=== PATIENT | female | born 1935 | race Two or more races ===

== ENCOUNTER 2019-04-24 20:07 | Inpatient (IN) | payer MEDICARE, OTHER ==
[~2019-04-24] VITALS: Ht 154.9 cm; Wt 73.3 kg
--- NOTE | 2019-04-24 20:28 | NUR ---
[id number] FROM HOME C/O SOB X2 DAYS -CP, -COUGH. PT AAOX3, DENIES CP, DIZZINESS, N/V, WEAKNESS @ THIS TIME. AWAITING EVAL BY PADDY. PLACED ON RAMP SERVICE MAN, SR. WILL CONT TO MONITOR.
[2019-04-24 21:14] LABS: BASOPHILS # (AUTO) 0.1 /CMM (0.0-0.2); BASOPHILS % (AUTO) 1.2 % (0.0-2.0); EOSINOPHILS % (AUTO) 1.7 % (0.0-6.0); HEMATOCRIT 30 % (33-45); HEMOGLOBIN 9.6 g/dL (11.5-14.8); LYMPHOCYTES # (AUTO) 1.7 /CMM (0.8-4.8); LYMPHOCYTES % (AUTO) 26.3 % (20.0-44.0); MEAN CORPUSCULAR HGB CONC 32 g/dl (31.0-36.0); MEAN CORPUSCULAR VOLUME 85 fL (82-100); NEUTROPHILS # (AUTO) 3.5 /CMM (1.8-8.9); NEUTROPHILS % (AUTO) 54.8 % (43.0-81.0); PLATELET COUNT (AUTO) 188 /CMM (150-450); RED BLOOD CELL COUNT(AUTO) 3.56 MIL/uL (4.0-5.2); WHITE BLOOD COUNT (AUTO) 6.3 K/uL (4.3-11.0)
[2019-04-24] MEDS ORDERED: IOHEXOL-300 100 ML VIAL IV ONE (21:17)
[2019-04-24] MEDS ORDERED: IV NS 0.9% 250 ML IV ONE (21:18)
[2019-04-24] MEDS ORDERED: CT SWABBABLE VALVE TRANS SET 1 EA INFUS.SET MC ONE (21:18)
[2019-04-24 21:36] LABS: B-TYPE NATRIURETIC PEPTIDE 16215 PG/ML (0-125); CARBON DIOXIDE 19 mmol/L (21-32); CHLORIDE 106 mmol/L (98-107); CREATININE 2.9 mg/dL (0.6-1.3); GLUCOSE 294 mg/dL (74-106); POTASSIUM 4.3 mmol/L (3.5-5.1); SODIUM SERUM 136 mmol/L (136-145); UREA NITROGEN, BLOOD 44 mg/dL (7-18)
--- NOTE | 2019-04-24 21:48 | NUR ---
PT STABLE, DENIES CP, DIZZINESS, N/V, WEAKNESS @ THIS TIME. WILL CONT TO MONITOR.
[2019-04-24] MEDS ORDERED: FUROSEMIDE 40 MG/4 ML VIAL ONE (22:00)
[2019-04-24] MEDS ORDERED: FUROSEMIDE 20 MG/2 ML VIAL ONE (22:00)
[2019-04-24] MEDS ORDERED: FUROSEMIDE 40 MG/4 ML VIAL IV ONE (22:00)
[2019-04-24 22:10] LABS: EOSINOPHILS % (MANUAL) 1 % (0-4); LYMPHOCYTES % (MANUAL) 30 % (16-48); MONOCYTES % (MANUAL) 13 % (0-11.0); NEUTROPHILS % (MANUAL) 55 (42-76); REACTIVE LYMPHOCYTES 1 % (0-0)
--- NOTE | 2019-04-24 22:29 | NUR ---
REPORT GIVEN TO NIKOS XAVIER FOR SERGIO.
[2019-04-24] MEDS ORDERED: DEXTROSE 50%-WATER 50 ML DISP.SYRIN IV PRN (22:30)
[2019-04-24] MEDS ORDERED: MAGNESIUM HYDROXIDE 30 ML UDC PO PRN (22:30)
[2019-04-24] MEDS ORDERED: MAG HYDROX/AL HYDROX/SIMETH 30 ML UDC PO PRN (22:30)
[2019-04-24] MEDS ORDERED: ONDANSETRON HCL/PF 4 MG/2 ML VIAL IVP PRN (22:30)
[2019-04-24] MEDS ORDERED: MORPHINE SULFATE INJ 2 MG/ML DISP.SYRIN IV PRN (22:30)
[2019-04-24] MEDS ORDERED: HYDROCODONE/APAP 5/325MG 1 EACH TABLET PO PRN (22:30)
[2019-04-24] MEDS ORDERED: ACETAMINOPHEN 325 MG TABLET PO PRN (22:30)
[2019-04-24 23:00] VITALS: BP 139/59
--- NOTE | 2019-04-24 23:00 | NUR ---
RN MS TELE ADMISSION NOTES RECEIVED PATIENT VIA GURNEY FROM ER SAFELY TRANSFERRED TO BED, AWAKE ALERT AND ORIENTED X3, ABLE TO COMMUNICATE NEEDS, NOTED SOB ON EXERTION ON 4 L VIA NC, SP02 94%, HEAD OF BED ELEVATED FOR RELIEF, BODY ASSESSMENT DONE, NO OPEN WOUNDS PRESENT, PATIENT ALSO STATES " NO OPEN SKIN". SACRAL NOTED WITH INTACT SCAR TISSUE, NO REDNESS, ABDOMEN WITH SCATTERED DISCOLORATIONS PER PATIENT STATES " INSULIN INJECTIONS" AND ALSO SCATTERED INTACT ECCHYMOSIS TO RIGHT AND LEFT UPPER ARMS PATIENT STATES " FROM ASPIRIN". IV SITE TO LEFT AC #18G AND LEFT HAND #18 G INTACT AND PATENT,NO REDNESS, NO INFILTRATION, BELONGINGS LIST DONE,ORIENTED TO STAFF AND CALL LIGHT AND KEPT WITHIN REACH, SAFETY PRECAUTIONS IN PLACE, LOW BED AND LOCKED, BED ALARM IN PLACE, ATTEMPTED TO OBTAIN MED RECON HOME MEDS PATIENT HOWEVER IS UNABLE TO RECALL MEDICATION, TIME AND DOSING STATES EITHER "NEIGHBOR CAN HELP OR OUTSIDE PHARMACY HAS A LIST OF MEDS" TOILETING OFFERED, ABLE TO AMBULATE TO RESTROOM WITH CANE AND 2 PERSON ASSIST, C/O PAIN TO KNEE WHEN AMBULATING, NOTED COMFORTABLE WHEN IN BED. ALL NEEDS ATTENDED AT THIS TIME, WILL CONTINUE TO MONITOR AND ATTEND TO NEEDS AND FOLLOW MD ORDERED. Addendum: 04/25/19 at 0153 by MORENITA HERRING RN PLACED ON CARDIAC TELE MONITOR NOTED A.FIB 38-51. WILL CONTINUE TO MONITOR FOR ANY CHANGES
[2019-04-25] VITALS: BP 120/63
[2019-04-25 04:00] VITALS: BP 123/49
[2019-04-25 04:30] VITALS: BP 123/49
--- NOTE | 2019-04-25 05:30 | NUR ---
RN MS NOTES MADE HOSPITALIST AWARE PATIENT COMPLAINT OF FEELING OF UNABLE TO CATCH BREATH AT TIME PATIENT IS NOT IN DISTRESS VS 123/49,45,20,93% ON 4L WILL AWAIT FOR FURTHER RECOMMENDATION.
--- NOTE | 2019-04-25 06:20 | NUR ---
RN MS NOTES NEW ORDERS PER HOSPITALIST FOR PULMONARY VENTILATION STAT.
[2019-04-25] MEDS: INSULIN REGULAR, HUMAN 100 UNIT/ML 3 ML VIAL SQ PRN ×3 (06:26→17:41)
[2019-04-25 06:44] LABS: BASOPHILS # (AUTO) 0.1 /CMM (0.0-0.2); HEMATOCRIT 31 % (33-45); HEMOGLOBIN 9.9 g/dL (11.5-14.8); LYMPHOCYTES # (AUTO) 1.5 /CMM (0.8-4.8); LYMPHOCYTES % (AUTO) 24.4 % (20.0-44.0); MEAN CORPUSCULAR HGB CONC 32 g/dl (31.0-36.0); MEAN CORPUSCULAR VOLUME 84 fL (82-100); MONOCYTES % (AUTO) 17.5 % (2.0-12.0); NEUTROPHILS # (AUTO) 3.2 /CMM (1.8-8.9); NEUTROPHILS % (AUTO) 54.1 % (43.0-81.0); PLATELET COUNT (AUTO) 190 /CMM (150-450); RED BLOOD CELL COUNT(AUTO) 3.64 MIL/uL (4.0-5.2)
--- NOTE | 2019-04-25 06:54 | NUR ---
RN MS NOTES RECEIVED CALL FROM NUCLEAR MEDICINE/RADIOLOGY FOR PULMONARY VENTILATION STAT TEST WILL BE AROUND 830-9AM.
--- NOTE | 2019-04-25 06:56 | NUR ---
RN MS NOTES PATIENT CURRENTLY IN BED AWAKE ALERT AND ORIENTED X3, ABLE TO MAKE NEEDS KNOWN , NOTED SOB ON EXERTION OR WHEN WALKING TO COMMODE. WHEN AT REST PATIENT IS NOT IN DISTRESS BUT STATES " HARD TO CATCH BREATH", ON 02 4L VIA NC SP02 94%. IV SITE TO LEFT AC#18G AND LEFT HAND #18G INTACT AND PATENT, NO REDNESS, NO INFILTRATION PRESENT, ON CANNON PINION ADJUSTER A.FIB RANGING FROM 38-51, HOSPITALIST AWARE AWAITING CARDIO CONSULT PATIENT AWARE. ALL NEEDS ATTENDED AT THIS TIME ,AWAITING NM PULMONARY VENTILATION STAT, WILL CONTINUE TO MONITOR AND ENDORSE TO NEXT SHIFT, PATIENT REMAINS COMFORTABLE AT THIS TIME. URINE OUTPUT 600CC AND VOID X2 IN RESTROOM. NO FURTHER CHANGES NOTED SINCE ADMISSION. PATIENT SLEPT WELL
[2019-04-25 07:12] LABS: CHOLESTEROL 137 mg/dL (<200); HDL CHOLESTEROL 20 mg/dL (40-60); LDL 80 mg/dL (0-99); THYROID STIMULATING HORMONE 6.626 uIU/mL (0.358-3.74); TRIGLYCERIDES 264 mg/dL (30-150)
[2019-04-25 07:21] LABS: B-TYPE NATRIURETIC PEPTIDE 17052 PG/ML (0-125); CALCIUM, SERUM 8.1 mg/dL (8.5-10.1); CARBON DIOXIDE 17 mmol/L (21-32); CHLORIDE 107 mmol/L (98-107); CREATININE 2.9 mg/dL (0.6-1.3); GLUCOSE 165 mg/dL (74-106); MAGNESIUM 1.8 mg/dL (1.8-2.4); PHOSPHORUS 4.4 mg/dL (2.5-4.9); POTASSIUM 3.8 mmol/L (3.5-5.1); SODIUM SERUM 139 mmol/L (136-145); UREA NITROGEN, BLOOD 46 mg/dL (7-18)
--- NOTE | 2019-04-25 07:30 | NUR ---
TUB RIDER OPENING NOTES: RECEIVED PATIENT IN BED AWAKE AND STABLE. A/OX3. ESTONIAN SPEAKING, VERBALLY RESPONSIVE. ABLE TO MAKE NEEDS KNOWN. NO S/S OF SOB OR DISTRESS. NO COMPLAINS OF PAIN AT THIS TIME. HOB ELEVATED. SAFETY MEASURES INITIATED. BED IN LOW, LOCKED POSITION WITH SIDE RAILS UP X2. IV ACCESS ON LEFT AC #18G, AND LEFT HAND #18G CLEAN, PATENT, AND INTACT. WILL CONTINUE TO MONITOR ACCORDINGLY.
[2019-04-25 08:00] VITALS: BP 126/57
[2019-04-25] MEDS: BLOOD SUGAR DIAGNOSTIC 1 EACH STRIP IN SCH ×4 (08:23→22:01)
[2019-04-25] MEDS: ASPIRIN 81 MG TAB.CHEW PO SCH (08:45)
[2019-04-25] MEDS: FUROSEMIDE 40 MG/4 ML VIAL IV SCH ×2 (08:46→17:07)
[2019-04-25] MEDS: PANTOPRAZOLE 40 MG TABLET.DR PO SCH (08:46)
[2019-04-25] MEDS ORDERED: FUROSEMIDE 40 MG/4 ML VIAL IV SCH (09:00)
--- NOTE | 2019-04-25 11:27 | NUR ---
NM LUNG V/Q WAS COMPLETED. TECH:RB
[2019-04-25 16:00] VITALS: BP 128/70
--- NOTE | 2019-04-25 19:06 | NUR ---
PERFORMANCE IMPROVEMENT COORDINATOR NOTES PATIENT IN BED RESTING PATIENT WITH SOB WITH MINIMAL EXERTION. PATIENT ALERT, ORIENTED X3, AZERI SPEAKING. NO ACUTE CHANGES NOTED DURING SHIFT. ALL DUE MEDICATIONS ADMINISTERED. ALL NEEDS MET. WILL ENDORSE CARE TO PM SHIFT.
[2019-04-25 20:00] VITALS: BP 147/71
--- NOTE | 2019-04-25 21:05 | NUR ---
c/o pain at IV site,left anticubital,place another on lower left arm and DC'd the one that was painful,no problems
--- NOTE | 2019-04-25 22:01 | NUR ---
BS 86,gave two packs of sugar to desolve in mouth to raise blood sugar.Patient is not eating his food or anything else. Addendum: 04/26/19 at 0023 by TIMOTEO MARR RN wrong patient,disregard
[2019-04-25 23:25] LABS: APPEARANCE,URINE CLEAR (CLEAR); BILIRUBIN,URINE NEGATIVE (NEGATIVE); BLOOD, URINE TRACE Ery/uL (NEGATIVE); COLOR,URINE YELLOW (YELLOW); KETONES,URINE NEGATIVE (NEGATIVE); LEUKOCYTE ESTERASE ,URINE SMALL (NEGATIVE); NITRITE, URINE NEGATIVE (NEGATIVE); PH,URINE 5.5 (5.0-8.0); PROTEIN,URINE TRACE mg/dl (NEGATIVE); UGLUCOSE NEGATIVE (NEGATIVE); UROBILINOGEN,URINE 0.2 EU/dL (0.2)
[2019-04-25 23:36] LABS: BACTERIA,URINE None seen /HPF (None Seen); RBC,URINE 0-2 /HPF (0-2); SQUAMOUS EPITHELIAL CELL,UR Few /HPF (None Seen)
[2019-04-25 23:37] LABS: EOSINOPHIL,URINE None Seen
[2019-04-25 23:40] LABS: CREATININE, URINE 18.7 MG/DL (30.0-125.0)
[2019-04-25 23:41] LABS: URINE TOTAL PROTEIN 2.3 mg/dL (0-11.9)
[2019-04-26] VITALS: BP 150/72
[2019-04-26 04:00] VITALS: BP 150/67
[2019-04-26 06:27] LABS: ALANINE AMINOTRANSFERASE 27 U/L (12-78); ALBUMIN 2.8 g/dL (3.4-5.0); ALKALINE PHOSPHATASE 97 U/L (46-116); ASPARTATE AMINOTRANSFERASE 26 U/L (15-37); BASOPHILS % (AUTO) 0.7 % (0.0-2.0); BILIRUBIN,TOTAL 0.5 mg/dL (0.2-1.0); CARBON DIOXIDE 23 mmol/L (21-32); CHLORIDE 106 mmol/L (98-107); EOSINOPHILS % (AUTO) 1.9 % (0.0-6.0); GLUCOSE 167 mg/dL (74-106); HEMATOCRIT 33 % (33-45); HEMOGLOBIN 10.4 g/dL (11.5-14.8); LYMPHOCYTES # (AUTO) 1.4 /CMM (0.8-4.8); LYMPHOCYTES % (AUTO) 20.3 % (20.0-44.0); MAGNESIUM 1.6 mg/dL (1.8-2.4); MEAN CORPUSCULAR HGB CONC 32 g/dl (31.0-36.0); MEAN CORPUSCULAR VOLUME 83 fL (82-100); MONOCYTES % (AUTO) 14.4 % (2.0-12.0); NEUTROPHILS # (AUTO) 4.2 /CMM (1.8-8.9); NEUTROPHILS % (AUTO) 62.7 % (43.0-81.0); PLATELET COUNT (AUTO) 194 /CMM (150-450); POTASSIUM 3.7 mmol/L (3.5-5.1); RED BLOOD CELL COUNT(AUTO) 3.91 MIL/uL (4.0-5.2); SODIUM SERUM 141 mmol/L (136-145); TOTAL PROTEIN, SERUM 6.7 g/dL (6.4-8.2); UREA NITROGEN, BLOOD 43 mg/dL (7-18); WHITE BLOOD COUNT (AUTO) 6.7 K/uL (4.3-11.0)
[2019-04-26 06:40] LABS: CHOLESTEROL 155 mg/dL (<200); CREATINE KINASE, TOTAL 53 U/L (26-192); HDL CHOLESTEROL 20 mg/dL (40-60); LDL 94 mg/dL (0-99); TRIGLYCERIDES 275 mg/dL (30-150)
--- NOTE | 2019-04-26 06:45 | NUR ---
Patient started to show signs of difficulty breathing,check o2 sat,98 %.Showed it to patient.O2 sat machine attach.
--- NOTE | 2019-04-26 07:58 | NUR ---
DISTILLERY WORKER OPENING NOTES RECEIVED PATIENT IN BED, ASLEEP. AROUSABLE TO VERBAL AND TACTILE STIMULI. ALERT AND ORIENTED X3 CYMRAES. ON TELE MONITORING SINUS WITH CONTROLLED A-FIB WITH BBB WITH PVC RATE OF 69. HOB ELEVATED. NO SOB. DENIES ANY PAIN NOR DISCOMFORT. CALL LIGHT WITHIN REACH. BED ALARM ON.
--- NOTE | 2019-04-26 07:58 | NUR ---
SENIOR COMPENSATION ANALYST OPENING NOTES RECEIVED PATIENT IN BED, ASLEEP. AROUSABLE TO VERBAL AND TACTILE STIMULI. ALERT AND ORIENTED X3 SPANISH SPEAKING WITH DAUGHTER AT BEDSIDE. ON TELE MONITORING SINUS WITH CONTROLLED A-FIB WITH BBB WITH PVC RATE OF 69. HOB ELEVATED. NO SOB. DENIES ANY PAIN NOR DISCOMFORT. CALL LIGHT WITHIN REACH. BED ALARM ON.
[2019-04-26] MEDS: PANTOPRAZOLE 40 MG TABLET.DR PO SCH (08:31)
[2019-04-26] MEDS: ASPIRIN 81 MG TAB.CHEW PO SCH (08:32)
[2019-04-26] MEDS: BLOOD SUGAR DIAGNOSTIC 1 EACH STRIP IN SCH ×4 (08:32→21:44)
[2019-04-26] MEDS: FUROSEMIDE 40 MG/4 ML VIAL IV SCH ×2 (08:32→17:29)
[2019-04-26] MEDS: INSULIN REGULAR, HUMAN 100 UNIT/ML 3 ML VIAL SQ PRN ×4 (08:36→21:50)
[2019-04-26] MEDS ORDERED: BLOO-668 IN (10:07)
[2019-04-26] MEDS ORDERED: ROSU10TA29 PO (10:07)
[2019-04-26] MEDS ORDERED: METO-358 PO (10:07)
[2019-04-26] MEDS ORDERED: HYDR100T27 PO (10:07)
[2019-04-26] MEDS ORDERED: INSU100I26 SQ (10:07)
[2019-04-26] MEDS ORDERED: ESOM40CA52 PO (10:07)
[2019-04-26] MEDS ORDERED: CLON0.1T PO (10:07)
[2019-04-26] MEDS ORDERED: INSU100I4 SQ (10:07)
[2019-04-26] MEDS ORDERED: RIVA10TA PO (10:07)
[2019-04-26] MEDS ORDERED: DIGO125T PO (10:07)
[2019-04-26] MEDS ORDERED: AMLO10TA7 PO (10:07)
[2019-04-26] MEDS ORDERED: ALPR1TAB7 PO (10:07)
--- NOTE | 2019-04-26 10:09 | NUR ---
WOUND CARE CONSULT: PT REFUSED SKIN ASSESSMENT AND STATED IS CONTINENT AND AMBULATORY WITH WALKER. WILL SEE PRN. CURRENT SAM SCORE IS 20.
--- NOTE | 2019-04-26 14:00 | NUR ---
MS RN NOTES CALLED DR. GORDON'S OFFICE AND SPOKE TO JOSE DE JESUS THAT MEDICAL RECORD REQUEST FORM HAS BEEN FAXED.
[2019-04-26 16:20] VITALS: BP 165/73
[2019-04-26] MEDS: RIVAROXABAN 15 MG TABLET PO SCH ×2 (17:00→19:00)
--- NOTE | 2019-04-26 17:00 | NUR ---
MS RN NOTES PER DR. GRIMES, DO NOT ADMINISTER XARELTO UNTIL WE GET THE CORRECT DOSAGE PATIENT IS CURRENTLY ON FOR XARELTO. ASK DR. GRIMES IF HE WANTS TO BE CALLED, PER DR. ARIAS, HE WILL CALL BACK Addendum: 04/26/19 at 1825 by LYNDSEY HOOD RN [facility] [phone]. PER [facility] PATIENT IS CURRENTLY ON XARELTO 15 MG DAILY
--- NOTE | 2019-04-26 19:00 | NUR ---
MS RN NOTES DR. GRIMES CALLED AND SAID OK TO GIVE XARELTO.
--- NOTE | 2019-04-26 19:00 | NUR ---
MS RN CLOSING NOTES ALERT AND ORIENTED X3 MACEDONIAN SPEAKING. PATIENT AMBULATED IN ROOM WITH WALKER WITH STEADY GAIT DURING THE SHIFT. HOB ELEVATED. NO SOB. DENIES ANY PAIN NOR DISCOMFORT. ABLE TO VERBALIZE NEEDS. LEFT FA SL # 24 INTACT AND PATENT. CALL LIGHT WITHIN REACH. BED IN LOWEST POSITION, LOCKED. CALL LIGHT WITHIN REACH. IN NO APPARENT DISTRESS.
--- NOTE | 2019-04-26 19:30 | NUR ---
MS RN OPENING NOTE RECEIVED PATIENT IN BED. A/OX3. ON OXYGEN 3L/MIN VIA NASAL CANNULA. RESPIRATIONS ARE EVEN AND UNLABORED. NO S/S SOB NOTED. DENIES PAIN AT THIS TIME. IV ACCESS IN LFA #24 PATENT AND SALINE LOCKED. BED IS LOW AND LOCKED, SIDE RAILS UP X2, HOB FLAT. CALL LIGHT WITHIN REACH. WILL CONTINUE TO MONITOR.
[2019-04-26 20:00] VITALS: BP 150/63
[2019-04-26 20:46] VITALS: BP 150/63
[2019-04-26] MEDS: ALPRAZOLAM 0.5 MG TABLET PO PRN (21:50)
--- NOTE | 2019-04-26 21:50 | NUR ---
MS RN NOTE ADMINISTERED PRN XANAX 0.5MG PER PATIENT REQUEST. WILL CONTINUE TO MONITOR.
[2019-04-27] MEDS: BLOOD SUGAR DIAGNOSTIC 1 EACH STRIP IN SCH ×4 (06:31→22:28)
[2019-04-27] MEDS: INSULIN REGULAR, HUMAN 100 UNIT/ML 3 ML VIAL SQ PRN ×4 (06:34→22:29)
--- NOTE | 2019-04-27 07:00 | NUR ---
MS RN CLOSING NOTE PATIENT IN BED. A/OX3. REMAINS ON OXYGEN 3L/MIN VIA NASAL CANNULA. RESPIRATIONS ARE EVEN AND UNLABORED. NO SOB NOTED. NO C/O PAIN. IV ACCESS REMAINS IN LFA #24 PATENT AND SALINE LOCKED. BED IS LOW AND LOCKED, SIDE RAILS UP X2, HOB FLAT. CALL LIGHT WITHIN REACH. WILL ENDORSE TO NEXT SHIFT.
[2019-04-27 07:58] VITALS: BP 146/72
[2019-04-27 08:00] VITALS: BP 146/72
[2019-04-27] MEDS: PANTOPRAZOLE 40 MG TABLET.DR PO SCH (08:30)
[2019-04-27] MEDS: ASPIRIN 81 MG TAB.CHEW PO SCH (08:30)
[2019-04-27] MEDS: FUROSEMIDE 40 MG/4 ML VIAL IV SCH (08:30)
[2019-04-27 10:07] LABS: *SPE A/G RATIO 0.8 (0.7-1.7); *SPE ALBUMIN 2.7 g/dL (2.9-4.4); *SPE ALPHA-1-GLOBULIN 0.3 g/dL (0.0-0.4); *SPE BETA GLOBULIN 1.1 g/dL (0.7-1.3); *SPE GLOBULIN, TOTAL 3.3 g/dL (2.2-3.9); *SPE M-SPIKE Not Observed g/dL (Not Observed)
[2019-04-27 12:06] LABS: PTH, INTACT 202 pg/mL (15-65)
--- NOTE | 2019-04-27 15:00 | NUR ---
stool OB collected and sent to lab
--- NOTE | 2019-04-27 15:10 | NUR ---
CALLED DR. GORDON'S OFFICE AGAIN AND LEFT A MESSAGE THAT MEDICAL RECORD HAS NOT BEEN RECEIVED .
[2019-04-27] MEDS ORDERED: LIDOCAINE /MPF 1% VIAL 5 ML VIAL IJ ONE (16:00)
[2019-04-27] MEDS ORDERED: TRIAMCINOLONE ACETONIDE SUSP 40 MG/ML 1 ML IJ ONE (16:00)
[2019-04-27] MEDS ORDERED: BUPIVACAINE 0.5 % PF 150 MG/30 ML VIAL IJ ONE (16:00)
[2019-04-27 16:18] VITALS: BP 159/70
[2019-04-27 16:26] LABS: OCCULT BLOOD STOOL NEGATIVE (NEGATIVE)
--- NOTE | 2019-04-27 17:40 | NUR ---
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
[2019-04-27] MEDS: FUROSEMIDE 40 MG TABLET PO SCH (18:13)
--- NOTE | 2019-04-27 18:36 | NUR ---
PATIENT IN BED. A/OX3. OFF OXYGEN 2L/MIN VIA NASAL CANNULA AT THIS TIME. RESPIRATIONS ARE EVEN AND UNLABORED. NO SOB NOTED. NO C/O PAIN. IV ACCESS REMAINS IN LFA #24 PATENT AND SALINE LOCKED. BED IS LOW AND LOCKED, SIDE RAILS UP X2, HOB FLAT. CALL LIGHT WITHIN REACH. WILL ENDORSE TO NEXT SHIFT FOR SERGIO..
--- NOTE | 2019-04-27 19:45 | NUR ---
RN NOTES RECEIVED PATIENT IN BED. ALERT ORIENTED X3. OFF OXYGEN 2L/MIN VIA NASAL CANNULA AT THIS TIME. RESPIRATIONS ARE EVEN AND UNLABORED. NO SOB NOTED. NO ACUTE RESPIRATORY DISTRESS NOTED, DENIES ANY PAIN. IV ACCESS REMAINS IN LFA #24 PATENT AND SALINE LOCKED. SAFETY MEASURES IN PLACE, BED IS LOW AND LOCKED, SIDE RAILS UP X2, HOB FLAT. CALL LIGHT WITHIN REACH. WILL CONTINUE TO MONITOR ACCORDINGLY.
[2019-04-27 19:58] VITALS: BP 131/64
[2019-04-27 20:51] VITALS: BP 131/64
[2019-04-27] MEDS: ALPRAZOLAM 0.5 MG TABLET PO PRN (22:46)
[2019-04-27 23:26] LABS: BASOPHILS % (AUTO) 0.6 % (0.0-2.0); EOSINOPHILS % (AUTO) 0.3 % (0.0-6.0); HEMATOCRIT 35 % (33-45); HEMOGLOBIN 11.2 g/dL (11.5-14.8); LYMPHOCYTES # (AUTO) 0.5 /CMM (0.8-4.8); LYMPHOCYTES % (AUTO) 9.6 % (20.0-44.0); MEAN CORPUSCULAR HGB CONC 32 g/dl (31.0-36.0); MEAN CORPUSCULAR VOLUME 84 fL (82-100); MONOCYTES # (AUTO) 0.2 /CMM (0.1-1.30); MONOCYTES % (AUTO) 3.9 % (2.0-12.0); NEUTROPHILS # (AUTO) 4.4 /CMM (1.8-8.9); NEUTROPHILS % (AUTO) 85.6 % (43.0-81.0); PLATELET COUNT (AUTO) 218 /CMM (150-450); RED BLOOD CELL COUNT(AUTO) 4.13 MIL/uL (4.0-5.2); WHITE BLOOD COUNT (AUTO) 5.2 K/uL (4.3-11.0)
[2019-04-27 23:36] LABS: CARBON DIOXIDE 24 mmol/L (21-32); CHLORIDE 103 mmol/L (98-107); CREATININE 2.9 mg/dL (0.6-1.3); IRON, SERUM 21 ug/dl (50-175); MAGNESIUM 1.5 mg/dL (1.8-2.4); PHOSPHORUS 3.1 mg/dL (2.5-4.9); SODIUM SERUM 137 mmol/L (136-145); TOTAL IRON BINDING CAPACITY 365 ug/dl (250-450); UREA NITROGEN, BLOOD 40 mg/dL (7-18)
[2019-04-27 23:52] LABS: FERRITIN 56 ng/mL (8-388)
[2019-04-27 23:53] LABS: GLUCOSE 362 mg/dL (74-106)
[2019-04-27 23:59] LABS: CALCIUM, SERUM 8.3 mg/dL (8.5-10.1)
[2019-04-28] VITALS: BP 139/74
[2019-04-28 04:00] VITALS: BP 142/77
[2019-04-28 06:28] LABS: BASOPHILS % (AUTO) 0.4 % (0.0-2.0); EOSINOPHILS % (AUTO) 0.1 % (0.0-6.0); HEMATOCRIT 34 % (33-45); HEMOGLOBIN 10.9 g/dL (11.5-14.8); LYMPHOCYTES # (AUTO) 0.6 /CMM (0.8-4.8); LYMPHOCYTES % (AUTO) 13.2 % (20.0-44.0); MEAN CORPUSCULAR HGB CONC 32 g/dl (31.0-36.0); MEAN CORPUSCULAR VOLUME 84 fL (82-100); MONOCYTES # (AUTO) 0.2 /CMM (0.1-1.30); MONOCYTES % (AUTO) 3.9 % (2.0-12.0); NEUTROPHILS # (AUTO) 3.7 /CMM (1.8-8.9); NEUTROPHILS % (AUTO) 82.4 % (43.0-81.0); PLATELET COUNT (AUTO) 204 /CMM (150-450); RED BLOOD CELL COUNT(AUTO) 4.04 MIL/uL (4.0-5.2); WHITE BLOOD COUNT (AUTO) 4.5 K/uL (4.3-11.0)
[2019-04-28] MEDS: BLOOD SUGAR DIAGNOSTIC 1 EACH STRIP IN SCH ×4 (06:48→18:03)
[2019-04-28] MEDS: INSULIN REGULAR, HUMAN 100 UNIT/ML 3 ML VIAL SQ PRN ×4 (06:50→18:07)
[2019-04-28 07:17] LABS: ALANINE AMINOTRANSFERASE 34 U/L (12-78); ALBUMIN 2.8 g/dL (3.4-5.0); ALKALINE PHOSPHATASE 109 U/L (46-116); ASPARTATE AMINOTRANSFERASE 36 U/L (15-37); BILIRUBIN,TOTAL 0.3 mg/dL (0.2-1.0); CALCIUM, SERUM 8.4 mg/dL (8.5-10.1); CARBON DIOXIDE 24 mmol/L (21-32); CHLORIDE 104 mmol/L (98-107); CREATININE 2.9 mg/dL (0.6-1.3); MAGNESIUM 1.6 mg/dL (1.8-2.4); PHOSPHORUS 3.2 mg/dL (2.5-4.9); POTASSIUM 4.3 mmol/L (3.5-5.1); SODIUM SERUM 138 mmol/L (136-145); UREA NITROGEN, BLOOD 41 mg/dL (7-18)
--- NOTE | 2019-04-28 07:30 | NUR ---
MS RN OPENING NOTE: RECEIVED PATIENT IN COMFORTABLE IN BED ALERT AND AWAKE. A/OX3. BRITISH SPEAKING. VERBALLY RESPONSIVE. ABLE TO MAKE NEEDS KNOWN. ON ROOM AIR. RESPIRATIONS ARE EVEN AND UNLABORED. NO S/S SOB NOTED. PATIENT IS AMBULATORY WITH WALKER AND ASSISTANCE. DENIES PAIN AND DISCOMFORT AT THIS TIME. IV ACCESS IN LFA #24 PATENT AND SALINE LOCKED. SAFETY MEASURES INITIATED. BED IS IN LOW AND LOCKED, SIDE RAILS UP X2, HOB ELEVATED. CALL LIGHT WITHIN REACH. WILL CONTINUE TO MONITOR ACCORDINGLY.
[2019-04-28 07:31] LABS: GLUCOSE 356 mg/dL (74-106)
[2019-04-28 07:32] LABS: IRON, SERUM 22 ug/dl (50-175); TOTAL IRON BINDING CAPACITY 353 ug/dl (250-450)
--- NOTE | 2019-04-28 07:34 | NUR ---
RN NOTES ALL NEEDS ATTENDED AND MET. SAFETY MEASURES IN PLACE. ENDORSED TO AM NURSE FOR CONTINUITY OF CARE.
[2019-04-28 07:43] LABS: FERRITIN 53 ng/mL (8-388)
[2019-04-28 08:00] VITALS: BP 156/84
[2019-04-28] MEDS: PANTOPRAZOLE 40 MG TABLET.DR PO SCH (08:07)
[2019-04-28] MEDS: ASPIRIN 81 MG TAB.CHEW PO SCH (08:08)
[2019-04-28] MEDS: FUROSEMIDE 40 MG TABLET PO SCH (08:08)
[2019-04-28] MEDS ORDERED: FURO40TA5 PO (08:46)
[2019-04-28] MEDS ORDERED: FUROSEMIDE 40 MG TABLET PO SCH (09:00)
--- NOTE | 2019-04-28 09:05 | NUR ---
MS RN NOTES: DR. DURAND MADE AWARE OF PATIENT'S BLOOD SUGAR. ORDERS TO CONTINUE TO MONITOR. PATIENT IS STABLE.
--- NOTE | 2019-04-28 09:15 | NUR ---
MS RN NOTES: CLARIFIED WITH DR. NORTON FOR NEW ORDER OF LASIX 40 MG DOSE TO START TOMORROW.
[2019-04-28] MEDS ORDERED: Magnesium 1GM/D5W 100ML PREMIX 100 ML IV SCH (10:32)
--- NOTE | 2019-04-28 13:30 | NUR ---
MS RN NOTES DR. NARAYANAN MADE AWARE OF PATIENTS ELEVATED BLOOD SUGAR LEVEL OF 385MG/DL ORDERS GIVEN TO RECHECK IN ONE HOUR AND REPEAT SLIDING SCALE ORDERED. NOTED AND CARRIED OUT.
--- NOTE | 2019-04-28 14:30 | NUR ---
MS RN NOTES PATIENTS BLOOD SUGAR RECHECKED NOTED 441MG/DL DR. NARAYANAN MADE AWARE 10 UNITS OF INSULIN ADMINISTERED WILL CONTINUE TO MONITOR.
[2019-04-28 16:00] VITALS: BP 150/78
[2019-04-28] MEDS: RIVAROXABAN 15 MG TABLET PO SCH (16:35)
--- NOTE | 2019-04-28 19:00 | NUR ---
MS RN NOTES PATIENT DISCHARGED HOME WITH SON. DISCHARGE EDUCATION PROVIDED TO PATIENT AND SON, VERBALIZED UNDERSTANDING. DISCHARGE PROTOCOL FOLLOWED. CALLED [facility] CONFIRMED RX WAS RECEIVED MEDICATION READY FOR WEB MARKETING SPECIALIST. PERIPHERAL IV REMOVED. DR. NARAYANAN AWARE OF PATIENTS BLOOD SUGAR READINGS. ALL BELONGINGS ACCOUNTED FOR, BELONGING LIST SIGNED. PATIENT ESCORTED TO CARE BY RN.
[2019-04-28 20:14] VITALS: BP 136/66
== END 2019-04-28 19:00 | disposition home health service (06) | DRG 291 ==
LOC: ER 20:09 → TELE 22:26 → MED 04-26 08:28
PROVIDERS: ADMIT Nurse Practitioner Acute Care; ATTEND Family Medicine
PROC: 3E0U33Z Introduction of Anti-inflammatory into Joints, Percutaneous Approach (ICD-10-PCS; principal; 2019-04-27)
PROC: 3E0U3BZ Introduction of Anesthetic Agent into Joints, Percutaneous Approach (ICD-10-PCS; 2019-04-27)
DX: I13.0 Hypertensive heart and chronic kidney disease with heart failure and stage 1 through stage 4 chronic kidney disease, or unspecified chronic kidney disease (principal); I50.33 Acute on chronic diastolic (congestive) heart failure; N17.0 Acute kidney failure with tubular necrosis; M17.0 Bilateral primary osteoarthritis of knee; I25.10 Atherosclerotic heart disease of native coronary artery without angina pectoris; F41.9 Anxiety disorder, unspecified; E78.5 Hyperlipidemia, unspecified; N18.9 Chronic kidney disease, unspecified; D64.9 Anemia, unspecified; E11.22 Type 2 diabetes mellitus with diabetic chronic kidney disease; E66.9 Obesity, unspecified; Z68.33 Body mass index [BMI] 33.0-33.9, adult; G47.33 Obstructive sleep apnea (adult) (pediatric); I48.0 Paroxysmal atrial fibrillation; E11.21 Type 2 diabetes mellitus with diabetic nephropathy; Z79.01 Long term (current) use of anticoagulants
CPT/HCPCS: 36415; 71045-TC; 76770-TC; 78579; 78582; 80048-TC; 80053-TC; 80061-TC; 81000-TC; 82272-TC; 82550-TC; 82570-TC; 82728-TC; 82962-TC; 83540-TC; 83735-TC; 83880; 83970; 84100-TC; 84155; 84155-TC; 84165; 84300-TC; 84439-TC; 84443-TC; 84484-TC; 85025-TC; 85378-TC; 85610-TC; 85730-TC; 87081-TC; 93307-TC; 93970-TC; 97110-TC; 97116-TC; 97530-TC; A6407; A9540; A9567; G0378; J1815; J1940; J2405; J3475; J3490; J7050; Q9967

== ENCOUNTER 2022-10-21 10:49 | Emergency (ER) | payer MEDICARE, OTHER ==
[~2022-10-21] VITALS: Ht 142.2 cm; Wt 68.5 kg
[~2022-10-21 10:49] MED LIST: ALPR1TAB7 PO; BLOO-668 IN; CLON0.1T PO; DIGO125T PO; ESOM40CA52 PO; FURO40TA5 PO; HYDR100T27 PO; INSU100I26 SQ; INSU100I4 SQ; RIVA10TA PO; ROSU10TA29 PO
--- NOTE | 2022-10-21 11:05 | NUR ---
pt cc rt chest pain due to fall 4days ago. took motrin with temporary relief. she is a known [facility]PN pt and DM. 3YRS AGO STARTED INSULIN INJ. NO PRYDEINIG SPEAKING
--- NOTE | 2022-10-21 11:08 | NUR ---
PT PUT ON BED AND MONITOR WITH PULSE. SEEN BY MD. WAITING FOR ORDERS
[2022-10-21] MEDS ORDERED: MORPHINE SULFATE INJ 2 MG/ML DISP.SYRIN IV ONE (11:30)
[2022-10-21] MEDS ORDERED: ACETAMINOPHEN ES 500 MG TABLET PO ONE (11:30)
[2022-10-21] MEDS ORDERED: MORPHINE SULFATE INJ 2 MG/ML DISP.SYRIN ONE (11:33)
[2022-10-21] MEDS ORDERED: ACETAMINOPHEN ES 500 MG TABLET ONE (11:34)
--- NOTE | 2022-10-21 11:37 | NUR ---
REFUSED TO HAVE AN IV LINE, BLOOD DRAW AND CT SCAN WITH CONTRAST EVEN AFTER EXPLAINING THE IMPORTANCE OF THE FF. MD MADE AWARE. ORDERS CHANGED AND CARRIED OUT.
--- NOTE | 2022-10-21 12:20 | NUR ---
TAKEN TO CT VIA SUSAN
[2022-10-21] MEDS ORDERED: DOCU-141 PO (13:15)
[2022-10-21] MEDS ORDERED: ACET-907 PO (13:15)
[2022-10-21 13:26] VITALS: BP 184/94
== END 2022-10-21 13:27 | disposition home or self-care (01) ==
LOC: ER 10:51
DX: S20.211A Contusion of right front wall of thorax, initial encounter (principal); K80.20 Calculus of gallbladder without cholecystitis without obstruction; I10 Essential (primary) hypertension; E78.5 Hyperlipidemia, unspecified; E11.9 Type 2 diabetes mellitus without complications; F41.9 Anxiety disorder, unspecified; Z91.013 Allergy to seafood; Z79.899 Other long term (current) drug therapy; Z60.2 Problems related to living alone; W18.30XA Fall on same level, unspecified, initial encounter; Y93.89 Activity, other specified; Y92.89 Other specified places as the place of occurrence of the external cause; Y99.8 Other external cause status
CPT/HCPCS: 71250-TC; J2270